=== PATIENT | female | born 1965 | race Caucasian/White ===

== ENCOUNTER 2024-08-28 05:56 | Day surgery (SDC) | payer OTHER ==
[2024-08-28 06:23] VITALS: RESP 18
[2024-08-28] MEDS: Lactated Ringers 1,000 ML IV SCH (06:42)
[2024-08-28] MEDS ORDERED: Xylocaine-Mpf 2% 5 Ml Vial ONE (07:27)
[2024-08-28] MEDS ORDERED: propofoL IV ONE ×2 (07:28→07:46)
[2024-08-28] MEDS ORDERED: Versed 2 MG/2 ML Injection ONE (07:30)
[2024-08-28] MEDS ORDERED: ROBINUL ONE (07:44)
[2024-08-28 08:51] VITALS: BP 162/88; PULSE 68; TEMP 97.5; O2SAT 93
--- NOTE | 2024-08-29 13:40 | OP ---
SURGERY DATE/TIME: 08/28/2024 [id number] PREOPERATIVE DIAGNOSIS: Screening colon exam, previous history of polyps. POSTOPERATIVE DIAGNOSIS: Diverticulosis. Otherwise, normal colon. PROCEDURE: Colonoscopy. SURGEON: Tenzin Bear MD ANESTHESIA: Medications were given by the anesthesia department. INDICATIONS: The patient is a 58-year-old white female who previously had colon polyps removed, she believes 5 years ago. The patient presents now for reinvestigation. She is having no specific problems other than constipation problems. The patient was appraised of the risks of the procedure including risk of perforation, phlebitis, untoward reaction to medication, bleeding, and missed lesions. The patient verbalized her understanding and desire to have procedure performed. DESCRIPTION OF PROCEDURE AND FINDINGS: The patient was given medication by the anesthesia department. She had continuous pulse oximetry, ECG monitoring, and intermittent blood pressure monitoring during the examination. She was placed in the left lateral decubitus position. Digital rectal examination was performed and revealed normal anal sphincter tone and no masses. The flexible Olympus videocolonoscope was used to intubate the rectum. A view of the colon was developed sequentially to the cecum. Upon insertion and withdrawal was noted mild diverticulosis throughout the colon and no other mucosal lesions being encountered. The scope was removed from the patient, who tolerated the procedure well and was sent back to outpatient recovery in good condition. The prep was noted to be good.
== END 2024-08-28 08:57 | disposition home or self-care (01) ==
LOC: SDC 05:56
PROVIDERS: ATTEND Family Medicine
DX: Z12.11 Encounter for screening for malignant neoplasm of colon (principal); Z09 Encounter for follow-up examination after completed treatment for conditions other than malignant neoplasm; Z86.0100 Personal history of colon polyps, unspecified; K57.30 Diverticulosis of large intestine without perforation or abscess without bleeding
CPT/HCPCS: J2250; J2704